=== PATIENT | male | born 1965 | race Caucasian/White ===

== ENCOUNTER 2018-11-13 11:35 | Emergency (ER) | payer BC ==
[2018-11-13 12:09] VITALS: BP 144/92
--- NOTE | 2018-11-13 12:10 | UC ---
General HPI - HPI Summary HPI Summary: pt fell onto his R knee on "frozen dirt" yesterday am. about 4 hours later the knee began to hurt. by last pm, the knee began to swell. today, unable to bend the knee due to pain on the front of his knee. no fever. last tetanus is not known. the fall put a small hole in his jeans. - History of Current Complaint Stated Complaint: RIGHT KNEE INJURY Time Seen by Provider: 11/13/18 12:02 Hx Obtained From: Patient Associated Signs & Symptoms: Negative: Fever - Allergy/Home Medications Allergies/Adverse Reactions: Allergies Allergy/AdvReac Type Severity Reaction Status Date / Time Penicillins Allergy Swelling Verified 11/13/18 12:05 Of Face,Lips,& Throat Home Medications: Home Medications Acetaminophen [APAP] 650 mg PO Q4H 11/13/18 [History Confirmed 11/13/18] Aspirin 325 mg PO DAILY 11/13/18 [History Confirmed 11/13/18] Atorvastatin* [Lipitor 80 MG*] 80 mg PO DAILY 11/13/18 [History Confirmed ] Clopidogrel Bisulfate [Plavix] 75 mg PO DAILY 11/13/18 [History Confirmed ] Glucosamine/D3/Boswellia Cassy [Osteo Bi-Flex Caplet] 1 each PO DAILY 11/13/18 [ History Confirmed 11/13/18] Mexiletine HCl 150 mg PO DAILY 11/13/18 [History Confirmed 11/13/18] Ramipril 5 mg PO DAILY 11/13/18 [History Confirmed 11/13/18] Sotalol HCl [Sotalol] 80 mg PO DAILY 11/13/18 [History Confirmed 11/13/18] raNITIdine HCl [Zantac] 150 mg PO DAILY 11/13/18 [History Confirmed 11/13/18] PMH/Surg Hx/FS Hx/Imm Hx Endocrine History: Dyslipidemia Cardiovascular History: Cardiac Disease, Hypertension GI/ History: Gastroesophageal Reflux - Surgical History Surgical History: Yes Surgery Procedure, Year, and Place: HEART STENTS,LOW BACK - Family History Known Family History: Positive: Hypertension - Social History Alcohol Use: Weekly Substance Use Type: None Smoking Status (MU): Heavy Every Day Tobacco Smoker Type: Cigarettes Amount Used/How Often: 1 ppd Length of Time of Smoking/Using Tobacco: since age 16 yo - Immunization History Most Recent Influenza Vaccination: none Review of Systems All Other Systems Reviewed And Are Negative: Yes Constitutional: Positive: Negative Skin: Positive: Negative Eyes: Positive: Negative ENT: Positive: Negative Respiratory: Positive: Negative Cardiovascular: Positive: Negative Gastrointestinal: Positive: Negative Genitourinary: Positive: Negative Motor: Positive: Negative Neurovascular: Positive: Negative Neurological: Positive: Negative Psychological: Positive: Negative Physical Exam Triage Information Reviewed: Yes Appearance: Well-Appearing Vital Signs Reviewed: Yes Eyes: Positive: Conjunctiva Clear ENT: Positive: Normal ENT inspection Neck: Positive: Supple Respiratory: Positive: Lungs clear Cardiovascular: Positive: RRR Abdomen Description: Positive: Nontender Bowel Sounds: Positive: Present Musculoskeletal: Positive: Other: - RLE: hip, ankle and foot are non tender. R knee: anterior knee with moderate swelling, warmth, erythema plus tender with a central 0.5cm laceration and inferior medial knee has a small abrasion. There is mild soiling with dirt type material around wound and a tiny piece of fiber( jeans) on edge of wound. Limited ROM both passive/active(pain). Foot has s/v/m function. No streaking to the leg. Neurological: Positive: Alert Psychological: Positive: Normal Response To Family, Age Appropriate Behavior Skin Exam: Normal Diagnostics - Laboratory Diagnostic Studies Completed/Ordered: WOUND CULTURE RIGHT KNEE WOUND=PENDING. - Radiology No standard instances Radiology Interpretation Completed By: Radiologist - R KNEE IMPRESSION: Radiographic findings are consistent with superficial soft tissue swelling without fracture identified. Course/Dx - Course Course Of Treatment: Procedure: debris removed with sterile gauze saturated with sterile saline and betadine plus FB plucked from wound. Wound irrigated with 500ml sterile NaCl under pressure. No additonal debris or FB's found post cleaning using sterile technique. A culture was obtained. Post xray: topical antibiotic and non adhering dressing applied to the site. Pt case including hx , PE and xray d/w Dr Reaves, pt's orthopedist. She was able to look at the xray as well and also noted the tiny spots. She request that I tx him with Bactrim and crutches. She suggested an nsaid but pt unable due to Plavix. Knee immobilizer offered as well. She will see him in 2 days for f/u; however, if there is any worsening he is to go directly to the ER. she states that the bursitis can be very painful, even more so if it is infected. Pt and his were made aware of this conversation and are comfortable with tx plan. Pt declined crutches, he already has them at home. Both agree to go to ER for any worsening as well. - Differential Dx - Multi-Symptom Differential Diagnoses: Other - fx, cellulitis, bursitis w/wo infection. since no fever or swelling of joint, septic joint not of concern at this time - Diagnoses Provider Diagnosis: Cellulitis of knee, right, Prepatellar bursitis, right knee Discharge - Sign-Out/Discharge Documenting (check all that apply): Patient Departure All imaging exams completed and their final reports reviewed: Yes - Discharge Plan Condition: Stable Disposition: HOME Prescriptions: Sulfamethox/Trimethoprim DS* [Bactrim DS 800/160 TAB*] 1 tab PO BID 10 Days #20 tab Patient Education Materials: Cellulitis (DC), Knee Bursitis (ED) Referrals: Jaime Reaves MD [Medical Doctor] - 2 Days Additional Instructions: CALL DR HERNANDEZ'S OFFICE TODAY TO SEE WHAT TIME THEY WANT TO SEE YOU THIS MONDAY(IN 2 DAYS) DIRECTED BY DR REAVES. IF YOU HAVE ANY WORSENING(FEVER, PAIN, SWELLING, STREAKING, DRAINAGE, REDNESS) GO TO THE ER IMMEDIATELY PER DR REAVES. USE YOUR CRUTCHES UNTIL CLEARED BY DR REAVES. - Billing Disposition and Condition Condition: STABLE Disposition: Home
[2018-11-13] MEDS ORDERED: Tetan/Diph/Pertus SYR(Tdap)* 0.5 ML SYR(BOOSTRIX) use SYR IM ONE (12:32)
[2018-11-13] MEDS ORDERED: Clindamycin CAP* 150 MG PO ONE (13:13)
[2018-11-13] MEDS ORDERED: Sulfamethox/Trimethoprim DS 800/160* TAB PO ONE (13:33)
== END 2018-11-13 13:46 | disposition home or self-care (01) ==
LOC: UCCORT 11:35
DX: L03.115 Cellulitis of right lower limb (principal); M70.41 Prepatellar bursitis, right knee; E78.5 Hyperlipidemia, unspecified; I10 Essential (primary) hypertension; K21.9 Gastro-esophageal reflux disease without esophagitis; F17.210 Nicotine dependence, cigarettes, uncomplicated; Z79.82 Long term (current) use of aspirin; Z88.0 Allergy status to penicillin
CPT/HCPCS: 87070; 87205; 90471; 90715; 99212; A9270-GY; G0463